=== PATIENT | female | born 1995 | race Caucasian/White ===

== ENCOUNTER 2017-01-23 02:59 | Emergency (ER) ==
[2017-01-23] MEDS ORDERED: SODIUM CHLORIDE 1,000 ML IV STA ×2 (03:11→05:39)
[2017-01-23 03:12] VITALS: BP 152/81; TEMP 97.8; BMI 32.3
[2017-01-23] MEDS ORDERED: ZOFRAN 4 MG/2 ML IVP STA (03:12)
[2017-01-23] MEDS ORDERED: PROTONIX IV IVP STA (03:12)
--- NOTE | 2017-01-23 03:13 | ED.PDOC ---
General ED Provider: Dr. ELIZABETH FITZPATRICK-ER Chief Complaint: Alcohol Intoxication Stated Complaint: i drink too much--im sick at my stomach Time Seen by Physician: 03:05 Mode of Arrival: Walk-In Information Source: Patient Primary Care Provider: ELIZABETH FITZPATRICK Nursing and Triage Documentation Reviewed and Agree: Yes GI Complaint Exam - Vomiting/Diarrhea Complaint/Exam Onset/Duration: 45min Symptoms Are: Still present Initial Severity: Mild Current Severity: Moderate Character of Vomiting: Reports: Non-bilious Alleviating: Reports: None Associated Signs and Symptoms: Denies: Dizziness, Light-headedness, Melena, Hematemesis, Fever, Abdominal pain, Cramping Recent Positive Test: No Non-GI Risk Factors: Reports: None Surgical Obstruction Risk Factors: Reports: None Related Surgical History: Reports: None Abdominal Findings: Present: None [place] Respirations Present: No Differential Diagnoses: Other Review of Systems - Review Of Systems Constitutional: Reports: No symptoms Eyes: Reports: No symptoms Ears, Nose, Mouth, Throat: Reports: No symptoms Respiratory: Reports: No symptoms Cardiac: Reports: No symptoms GI: Reports: Nausea, Vomiting : Reports: No symptoms Musculoskeletal: Reports: No symptoms Skin: Reports: No symptoms Neurological: Reports: No symptoms Endocrine: Reports: No symptoms Hematologic/Lymphatic: Reports: No symptoms All Other Systems: Reviewed and Negative Past Medical History - Past Medical History Previously Healthy: Yes Endocrine: Reports: None Cardiovascular: Reports: None Respiratory: Reports: Asthma Hematological: Reports: None Gastrointestinal: Reports: None Genitourinary: Reports: None Neuro/Psych: Reports: None Musculoskeletal: Reports: None Cancer: Reports: None - Surgical History General Surgical History: Reports: None - Family History Family History: Reports: None - Social History Smoking Status: Never smoker Hx Substance Use: No Alcohol Screening: None Lives: With family Physical Exam - Physical Exam Appearance: Well-appearing, No pain distress, Well-nourished Eyes: ESSIE, EOMI, Conjunctiva clear ENT: Ears normal, Nose normal, Oropharynx normal Neck: Supple Respiratory: Airway patent, Crackles Cardiovascular: RRR, Pulses normal, No rub, No murmur GI/: Soft Musculoskeletal: Normal strength, ROM intact, No edema, No calf tenderness Skin: Warm, Dry, Normal color Neurological: Sensation intact Psychiatric: Affect appropriate, Mood appropriate Re-Evaluation - Re-Evaluation Time of Re-Evaluation: 05:44 Status: Improved Vital Signs Stable: Yes Pain Level: no nausea or abd pain Appearance: NAD Lungs: Clear Skin: Warm and Dry Neuro: Alert and Oriented X3 CV: RRR Critical Care Note - Critical Care Note Total Time (mins): 0 Course - Course Hematology/Chemistry: 01/23/17 03:30 01/23/17 03:30 Orders, Labs, Meds: Lab Review 01/23/17 01/23/17 03:30 04:15 WBC 13.16 H RBC 4.96 Hgb 11.8 L Hct 39.3 MCV 79.2 L MCH 23.8 L MCHC 30.0 L RDW Coeff of Raul 14.6 Plt Count 151 Immature Gran % (Auto) 0.4 Neut % (Auto) 78.9 Lymph % (Auto) 15.2 [place] % (Auto) 4.5 Eos % (Auto) 0.7 Baso % (Auto) 0.3 Immature Gran # (Auto) 0.1 Neut # 10.4 H Lymph # 2.0 [place] # 0.6 Eos # 0.1 Baso # 0.0 Sodium 141 Potassium 3.4 L Chloride 109 H Carbon Dioxide 19 L Anion Gap 16.4 BUN 10 Creatinine 0.74 Estimated GFR (MDRD) 99.00 BUN/Creatinine Ratio 13.51 Glucose 118 H Calcium 9.3 Total Bilirubin 0.17 AST 21 ALT 31 Alkaline Phosphatase 116 H Total Protein 7.4 Albumin 3.8 Globulin 3.6 Albumin/Globulin Ratio 1.06 Amylase 59 Lipase 7 L Urine Color Yellow Urine Clarity Clear Urine pH 6.0 Ur Specific [place] 1.015 Urine Protein Negative Urine Glucose (UA) Negative Urine Ketones Negative Urine Blood Negative Urine Nitrite Negative Urine Bilirubin Negative Urine Urobilinogen 0.2 Ur Leukocyte Esterase Negative Urine Test Negative Urine Opiates Screen Negative Ur Oxycodone Screen Negative Urine Methadone Screen Negative Ur Propoxyphene Screen Negative Ur Barbiturates Screen Negative U Tricyclic Antidepress Negative Ur Phencyclidine Scrn Negative Ur Amphetamine Screen Negative U Methamphetamines Scrn Negative U Benzodiazepines Scrn Negative Urine Cocaine Screen Negative U Cannabinoids Screen Negative Plasma/Serum Alcohol 176.3 H Orders Category Date Time Status ED IV/MEDIPORT/POWERPORT .ONCE EMERGENCY 01/23/17 03:11 Active AMYLASE Stat LAB 01/23/17 03:30 Completed BLOOD ALCOHOL Stat LAB 01/23/17 03:30 Completed CBC W/ AUTO DIFF Stat LAB 01/23/17 03:30 Completed COMPREHENSIVE METABOLIC PANEL Stat LAB 01/23/17 03:30 Completed LIPASE Stat LAB 01/23/17 03:30 Completed URINALYSIS C & S IF INDICATED Stat LAB 01/23/17 04:15 Completed URINE DRUG SCREEN (RAPID FOR ED) [DRUG SCREEN, URINE, LAB 01/23/17 04:15 Completed RAPID] Stat URINE Stat LAB 01/23/17 04:15 Completed 0.9 % Sodium Chloride [Saline Flush] MEDS 01/23/17 03:11 Ordered 1 syr IVF PRN PRN Ondansetron HCl/Pf [Zofran 4 mg/2 ml] MEDS 01/23/17 03:12 Discontinued 4 mg IVP ONCE STA Pantoprazole Sodium [Protonix IV] MEDS 01/23/17 03:12 Discontinued 40 mg IVP ONCE STA Sodium Chloride 0.9% [Sodium Chloride] 1,000 ml MEDS 01/23/17 03:11 Discontinued IV BOLUS Sodium Chloride 0.9% [Sodium Chloride] 1,000 ml MEDS 01/23/17 05:39 Active IV BOLUS Medications Generic Name Dose Route Start Last Admin Trade Name Freq PRN Reason Stop Dose Admin Sodium Chloride 1,000 mls @ 500 mls/hr 01/23/17 05:39 01/23/17 05:41 Sodium Chloride IV 01/23/17 07:38 500 mls/hr BOLUS STA Administration Sodium Chloride 1 syr 01/23/17 03:11 01/23/17 03:27 Saline Flush IVF 1 syr PRN PRN Administration To flush IV Discontinued Medications Generic Name Dose Route Start Last Admin Trade Name Freq PRN Reason Stop Dose Admin Sodium Chloride 1,000 mls @ 500 mls/hr 01/23/17 03:11 01/23/17 03:27 Sodium Chloride IV 01/23/17 05:10 500 mls/hr BOLUS STA Administration Ondansetron HCl 4 mg 01/23/17 03:12 01/23/17 03:26 Zofran 4 Mg/2 Ml IVP 01/23/17 03:13 4 mg ONCE STA Administration Pantoprazole Sodium 40 mg 01/23/17 03:12 01/23/17 03:27 Protonix Iv IVP 01/23/17 03:13 40 mg ONCE STA Administration Vital Signs: Temp Pulse Resp BP Pulse Ox 01/23/17 03:01 97.8 F 93 H 20 152/81 H 97 Departure - Departure Time of Disposition: 05:44 Disposition: HOME SELF-CARE Discharge Problem: Alcohol intoxication Instructions: Alcohol Intoxication (ED) Condition: Good Pt referred to PMD for follow-up: Yes Additional Instructions: clear liquds today and advance--return prn Allergies/Adverse Reactions: Allergies No Known Drug Allergies Adverse Reaction (Verified 01/23/17 03:18) Home Medications: Ambulatory Orders Albuterol Sulfate [Albuterol Sulfate Hfa] 2 inh IH Q4H PRN 10/08/15 Desogestrel-Ethinyl Estradiol [Apri 28 Day Tablet] 1 each PO DAILY 10/08/15 Disposition Discussed With: Patient
[2017-01-23 03:38] LABS: BASOPHILS % (AUTO) 0.3 % (0.0-3.0); EOSINOPHILS # (AUTO) 0.1 K/ul (0.0-0.7); EOSINOPHILS % (AUTO) 0.7 % (0.0-7.0); HEMATOCRIT 39.3 % (37.0-47.0); HEMOGLOBIN 11.8 g/dl (12.0-16.0); IMMATURE GRANULOCYTE % (AUTO) 0.4 % (0.0-5.0); LYMPHOCYTES % (AUTO) 15.2 (10.0-50.0); MEAN CORPUSCULAR HEMOGLOBIN 23.8 pg (27.0-31.0); MEAN CORPUSCULAR VOLUME 79.2 fl (81.0-99.0); MONOCYTES # (AUTO) 0.6 K/uL (0.4-2.0); MONOCYTES % (AUTO) 4.5 (0-10); NEUTROPHILS # (AUTO) 10.4 K/ul (2.0-6.9); NEUTROPHILS % (AUTO) 78.9; PLATELET COUNT 151 10^3/uL (140-440); RED BLOOD COUNT 4.96 10^6/ul (4.20-5.40); WHITE BLOOD COUNT 13.16 K/ul (4.6-10.2)
[2017-01-23 03:57] LABS: ALBUMIN 3.8 g/dL (3.4-5.0); ALBUMIN/GLOBULIN RATIO 1.06; ANION GAP 16.4; BILIRUBIN,TOTAL 0.17 mg/dL (0.00-1.20); BUN/CREATININE RATIO 13.51; CALCIUM 9.3 mg/dL (8.2-10.2); CREATININE 0.74 mg/dL (0.60-1.30); POTASSIUM 3.4 mmol/L (3.5-5.10); TOTAL PROTEIN 7.4 g/dL (6.4-8.2)
[2017-01-23 05:05] LABS: BILIRUBIN,URINE Negative (NEGATIVE); KETONES,URINE Negative (NEGATIVE); LEUKOCYTE ESTERASE ,URINE Negative (NEGATIVE); NITRITE,URINE Negative (NEGATIVE); PROTEIN,URINE Negative (NEGATIVE); URINE, BLOOD Negative (NEGATIVE)
[2017-01-23 05:06] LABS: ADD URINE MICROSCOPIC NO; URINE PREGNANCY INTERNAL QC INTERNAL QC VALID
[2017-01-23 05:13] LABS: COCAIN SCREEN,URINE NEGATIVE (NEGATIVE)
== END 2017-01-23 06:40 | disposition home or self-care (01) ==
LOC: ED 02:59
DX: F10.129 Alcohol abuse with intoxication, unspecified (principal)
CPT/HCPCS: 36415; 80053; 80306; 80307; 81001; 81025; 82150; 83690; 85025; 96360; 96361; 96375; 99285

== ENCOUNTER 2017-10-26 10:00 | Outpatient (CLI) | END 2017-10-26 10:01 | disposition left against medical advice (07) | LOC: AMBL 10:00 | PROVIDERS: ATTEND Internal Medicine | DX: Z04.1 Encounter for examination and observation following transport accident (principal) ==